=== PATIENT | female | born 1970 | race Caucasian/White ===

== ENCOUNTER → 2019-11-16 16:49 | Outpatient (CLI) | payer OTHER, SELFPAY ==
[2019-11-16 16:19] VITALS: BMI 26.1
[2019-11-16 17:57] LABS: T4 Free Direct 1.05 ng/dL (0.76-1.46); Thyroid Stim Hormone (TSH) 0.79 uIU/mL (0.358-3.74)
== END ==
PROVIDERS: PCP Family Medicine; Referring Provider Internal Medicine Endocrinology, Diabetes & Metabolism; Visit Provider Internal Medicine Endocrinology, Diabetes & Metabolism
DX: E03.8 Other specified hypothyroidism (principal); E06.3 Autoimmune thyroiditis
CPT/HCPCS: 36415; 84439; 84443